=== PATIENT | female | born 1960 | race Two or more races ===

== ENCOUNTER → 2017-11-22 | Outpatient (CLI) | payer OTHER ==
[~2017-11-22] MED LIST: FEOSOL325 MG PO; GLUCOPHAGE1000 MG PO; LO-DOSE ASPIRIN81 M1 PO; LOPRESSOR25 MG PO; ONGLYZA5 MG PO; PRILOSEC20 MG PO; ZESTRIL2.5 MG PO; ZOCOR20 MG PO
== END | disposition home or self-care (01) ==
DX: M17.11 Unilateral primary osteoarthritis, right knee (principal); R26.2 Difficulty in walking, not elsewhere classified; M25.561 Pain in right knee; M25.661 Stiffness of right knee, not elsewhere classified; M25.551 Pain in right hip; M25.651 Stiffness of right hip, not elsewhere classified; M62.81 Muscle weakness (generalized); Z74.1 Need for assistance with personal care
CPT/HCPCS: 97161 GP; 97165 GO; 97530 GP; 97535 GO

== ENCOUNTER 2017-11-27 22:06 | Inpatient (IN) | payer OTHER ==
[~2017-11-27] VITALS: Ht 157.5 cm; Wt 95.3 kg
[2017-11-28 08:07] VITALS: BP 125/76
[2017-11-28 15:56] VITALS: BP 126/86
[2017-11-28 23:58] VITALS: BP 109/63
[2017-11-29 04:13] VITALS: BP 120/70
[2017-11-29 04:48] LABS: HEMATOCRIT 32.2 % (36.0-46.0); MCV 79.1 FL (83-99)
[2017-11-29 05:06] LABS: HEMOGLOBIN 10.2 G/DL (11.9-15.5)
[2017-11-29 05:15] LABS: CHLORIDE 104 mEq/L (99-109); POTASSIUM 4.5 mEq/L (3.7-5.4); SODIUM 135 mEq/L (136-147)
[2017-11-29 05:16] LABS: GLUCOSE 154 mg/dL (70-99)
[2017-11-29 05:20] LABS: CREATININE 0.7 mg/dL (0.6-1.3); GFR ESTIMATE (CALCULATED) > 59 mL/min/
[2017-11-29 05:21] LABS: UREA NITROGEN (BUN) 8 mg/dL (9-23)
[2017-11-29 08:48] VITALS: BP 124/67
[2017-11-29 17:05] VITALS: BP 123/61
[2017-11-29 23:49] VITALS: BP 138/70
[2017-11-30 05:25] LABS: HEMATOCRIT 29.2 % (36.0-46.0); HEMOGLOBIN 9.1 G/DL (11.9-15.5); MCV 78.5 FL (83-99)
[2017-11-30 07:59] VITALS: BP 127/74
[2017-11-30] MEDS ORDERED: SENNA PLUS TAB1 EACH PO (09:17)
[2017-11-30] MEDS ORDERED: ELIQUIS2.5 MG PO (09:17)
[2017-11-30] MEDS ORDERED: ENDOCET 5-3251 EACH PO (09:17)
== END 2017-11-30 14:49 | DRG 470 ==
LOC: 2SOUTH → ENRESERV 22:06 → 2SOUTH 11-28 07:39 → ENRESERV 11-28 13:06 → 3EAST 11-28 14:30 → ENRESERV 11-28 14:31 → 2SOUTH 11-28 14:33 → 3EAST 11-30 14:49
PROVIDERS: Orthopaedic Surgery
PROC: 0SRC0J9 Replacement of Right Knee Joint with Synthetic Substitute, Cemented, Open Approach (ICD-10-PCS; principal; 2017-11-28)
DX: M17.11 Unilateral primary osteoarthritis, right knee (principal); M25.561 Pain in right knee; E11.9 Type 2 diabetes mellitus without complications; K21.9 Gastro-esophageal reflux disease without esophagitis; I10 Essential (primary) hypertension
CPT/HCPCS: 71045; 80048; 82948; 85014; 85018; C1713; J0690; J1815; J1885; J2175; J2250; J2270; J2405; J2765; J2795; J3010; J7050; J7120